=== PATIENT | female | born 1975 | race Caucasian/White ===

== ENCOUNTER 2017-04-28 12:37 | Emergency (ER) | payer OTHER, SELFPAY | END 2017-04-28 14:55 | disposition home or self-care (01) | PROVIDERS: Emergency Provider Nurse Practitioner; Family Provider Internal Medicine; Visit Provider Nurse Practitioner | DX: J06.9 Acute upper respiratory infection, unspecified (principal) | CPT/HCPCS: 99201 ==

== ENCOUNTER → 2017-04-30 | Outpatient (CLI) | payer OTHER, SELFPAY | PROVIDERS: Visit Provider Physician Assistant | DX: E55.9 Vitamin D deficiency, unspecified (principal); E66.9 Obesity, unspecified; Z68.43 Body mass index [BMI] 50.0-59.9, adult | CPT/HCPCS: 80053; 80061; 82306; 82607; 82746; 84439; 84443; 85025 ==

== ENCOUNTER → 2017-11-14 08:37 | Outpatient (CLI) | payer OTHER, SELFPAY ==
[2017-11-14 08:45] LABS: Microscopic, Urine URINE MICROSCOPIC (MICROSCOPIC)
[2017-11-14 09:05] LABS: Basophils % 0.4 % (0.1-2.0); Eosinophils # 0.4 K/mm3 (0.0-0.4); Eosinophils % 3.8 % (0.1-12.0); Hematocrit 42.4 % (37.0-47.0); Hemoglobin 13.9 g/dL (12.2-16.2); Lymphocytes # 2.5 K/mm3 (0.7-4.5); Lymphocytes % 27.1 K/mm3 (10-50); Mean Corpuscular HGB Conc 32.7 g/dL (31.8-35.4); Mean Corpuscular Hemoglobin 26.7 pg (27.0-31.2); Mean Corpuscular Volume 81.7 fl (81-99); Mean Platelet Volume 6.8 fl (7.4-10.4); Monocytes # 0.5 K/mm3 (0.1-1.0); Monocytes % 4.9 % (1.7-9.3); Neutrophils % 63.8 % (37.0-80.0); Platelet Count 357 K/mm3 (142-424); Red Blood Count 5.19 M/mm3 (4.20-5.40); Red Cell Distribution Width 13.6 % (11.5-17.5); White Blood Count 9.4 K/mm3 (4.8-10.8)
[2017-11-14 09:43] LABS: Appearance,Urine CLEAR (Clear); Bilirubin,Urine Negative (Negative); Blood, Urine TRACE-I (Negative); Color,Urine YELLOW (Yellow); Glucose,Urine (UA) Negative (Negative); Ketones,Urine Negative (Negative); Leukocyte Esterase,Urine Negative (Negative); Nitrate,Urine Negative (Negative); Protein,Urine Negative (Negative); Urobilinogen,Urine 0.2 EU/dl (0.2)
[2017-11-14 10:04] LABS: Bacteria,Urine Trace /lpf; Mucus,Urine 1+ /lpf; RBC,Urine Occasional #/hpf (0-3); WBC,Urine Occasional #/hpf (0-3)
[2017-11-14 10:21] LABS: Hemoglobin A1C 5.2 % (0.0-7.0)
[2017-11-14 10:28] LABS: Alanine Aminotransferase 37 U/L (12-78); Albumin Level 3.7 gm/dL (3.4-5.0); Alkaline Phosphatase 97 U/L (46-116); Aspartate Amino Transferase 17 U/L (15-37); Bilirubin,Total 0.5 mg/dL (0.2-1.0); Blood Urea Nitrogen 12 mg/dL (7-18); Calcium 8.7 mg/dL (8.5-10.1); Carbon Dioxide 27 mmol/L (21.0-32.0); Chloride 107 mmol/L (98-107); Chol/HDL Ratio 4.2 (1-3.5); Cholesterol 200 mg/dL (140-200); Creatinine,Serum 0.71 mg/dL (0.55-1.02); Estimated Glomerular Filt Rate 91 ml/min (>60); Free T4 (Free Thyroxine) 0.97 ng/dl (0.76-1.46); GFR (African American) 110 ML/MIN (>60); Globulin 3.7 gm/dl (1.3-3.2); Glucose 99 mg/dL (74-106); HDL Cholesterol 48 mg/dL (29-89); LDL Cholesterol 130 mg/dL (0-130); Sodium 142 mmol/L (136-145); Thyroid Stimulating Hormone 2.48 uIU/ml (0.358-3.740); Total Protein,Serum 7.4 gm/dL (6.4-8.2); Triglycerides 110 mg/dL (30-200); VLDL Cholesterol 22 mg/dL (0-40)
[2017-11-15 17:43] LABS: Microalbumin, Urine 18.6 ug/mL (Not Estab.)
[2017-11-17 19:21] LABS: Thyroglobulin Level 2.3 IU/mL (0.0-0.9)
[2017-11-19 09:10] LABS: Thyroid Peroxidase Antibodies >600 IU/mL (0-34)
[2017-11-25 06:15] LABS: Thyroglobulin by RIA 42 ng/mL (.)
== END ==
PROVIDERS: Visit Provider Internal Medicine
DX: R53.83 Other fatigue (principal); E66.9 Obesity, unspecified; Z13.220 Encounter for screening for lipoid disorders; Z13.1 Encounter for screening for diabetes mellitus
CPT/HCPCS: 36415; 80053; 80061; 81001; 82043; 83036; 84439; 84443; 85025; 86376; 86800

== ENCOUNTER → 2018-06-10 08:42 | Outpatient (CLI) | payer OTHER, SELFPAY ==
--- NOTE | 2018-06-10 08:46 | CI_ITS ---
Cerebrovascular Exam Indications: 780.4 Dizziness and giddiness. IMPRESSIONS 1. The bilateral vertebral arteries are patent with normal antegrade flow. 2. Study suggests less than 20% stenosis involving the left internal carotid artery. 3. Study suggests 20-49% stenosis involving the right internal carotid artery. History: Risk factors: Hypertension. Carotid duplex study. Complete study and Doppler flow study including spectral analysis, color and holland scale imaging. Height: Height: 1950.7cm. Height: 768in. Weight: Weight: 130.2kg. Weight: 286.4lb. Body mass index: BMI: 0.3kg/m^2. Body surface area: BSA: 6.71m^2. Location: Vascular laboratory. Patient status: Outpatient. Incidental findings: During the procedure, a goiter is observed. Tables: Arterial flow: + +--------+--------+ Location V sys V ed + +--------+--------+ Right CCA - proximal 142cm/s 25.9cm/s + +--------+--------+ Right CCA - distal 133cm/s 30.6cm/s + +--------+--------+ Right ECA 140cm/s 16.5cm/s + +--------+--------+ Right ICA - proximal 152cm/s 33cm/s + +--------+--------+ Right ICA - mid 84.9cm/s 25.1cm/s + +--------+--------+ Right ICA - distal 112cm/s 40.9cm/s + +--------+--------+ Right vertebral 69.9cm/s 21.2cm/s + +--------+--------+ Left CCA - proximal 150cm/s 36.1cm/s + +--------+--------+ Left CCA - distal 125cm/s 34.6cm/s + +--------+--------+ Left ECA 122cm/s 29.9cm/s + +--------+--------+ Left ICA - proximal 74.6cm/s 18.9cm/s + +--------+--------+ Left ICA - mid 112cm/s 43.2cm/s + +--------+--------+ Left ICA - distal 98.2cm/s 42.4cm/s + +--------+--------+ Left vertebral 69.9cm/s 21.2cm/s + +--------+--------+ Velocity ratios: + + + + + + Right, V sys Right, V ed Left, V sys Left, V ed + + + + + + Max ICA/dist CCA 1.14 1.34 0.9 1.25 + + + + + + (Report amended ) Electronically signed by: Dutch Ying [id number]
--- NOTE | 2018-06-10 08:46 | CA_ITS ---
PROCEDURE: 2-D M-mode and color Doppler study INDICATIONS FOR THE TEST: Chest pain COPD Heart Murmur Tobacco Smoking Palpitations Fatigue Syncope Edema Hypertension+Diabetes Mellitus Rheumatic Fever SOB PALACIOS Obesity + Hyperlipidemia Family History HD Additional History XIOMARA PATIENT INFORMATION HEIGHT: 64 WEIGHT:287 GENDER: Female B/P:152/100 2-D/M-MODE INTERPRETATION: 2-D MEASUREMENTS OBSERVED VALUES IN CMS Right Ventricular Dimension (RVDd) 2.3 Interventricular Septum (Thickness)(IVsd) 1.6 Left Ventricular Internal Dimensions(LVIDd) 5.1 Left Ventricular Posterior Wall (Thickness)(LVPWd) 0.9 Aortic Root 3.2 Aortic Cusp Separation 1.9 Left Atrial Dimensions (LAD) 4.0 2D 1. Left atrium is mildly enlarged, left ventricle is normal size, mild concentric left ventricular hypertrophy, visually estimated ejection fraction 55% with no regional wall motion abnormality. 2. The right atrium and right ventricle are mildly enlarged with normal contractility. 3. The aortic valve is minimally thickened and fibrosed. 4. The mitral and tricuspid valve leaflets are minimally thickened. 5. The pulmonic valve is poorly visualized. 6. No significant pericardial effusion noted. DOPPLER INTERROGATION: Doppler interrogation of the aortic, mitral and tricuspid valvular presence of mild mitral and tricuspid regurgitation, tricuspid regurgitation jet velocity is inadequate for calculation of the right ventricular systolic pressure, grade 1 diastolic dysfunction seen with tissue Doppler evidence of raised left atrial pressure. CONCLUSION: 1. Mildly enlarged left atrium, normal left ventricular size, mild concentric left ventricular hypertrophy, visually estimated ejection fraction 55% with no regional wall motion abnormality, grade 1 diastolic dysfunction seen with tissue Doppler evidence of raised left atrial pressure. 2. Mild mitral and tricuspid regurgitation 3. No significant pericardial effusion noted.
[2018-06-10 11:14] LABS: Anion Gap 11.1 mEq/L (5-15); Blood Urea Nitrogen 18 mg/dL (7-18); Calcium 9.5 mg/dL (8.5-10.1); Carbon Dioxide 32 mmol/L (21.0-32.0); Chloride 100 mmol/L (98-107); Creatinine,Serum 0.76 mg/dL (0.55-1.02); Estimated Glomerular Filt Rate 83 ml/min (>60); GFR (African American) 101 ML/MIN (>60); Glucose 101 mg/dL (74-106); Potassium 4.1 mmoL/L (3.5-5.1); Sodium 139 mmol/L (136-145)
== END ==
PROVIDERS: Internal Medicine Cardiovascular Disease; PCP Internal Medicine; Visit Provider Internal Medicine
DX: R42 Dizziness and giddiness (principal); H53.9 Unspecified visual disturbance; I10 Essential (primary) hypertension; E66.9 Obesity, unspecified; G47.33 Obstructive sleep apnea (adult) (pediatric); R11.0 Nausea
CPT/HCPCS: 36415; 80048; 83880; 93306; 93880

== ENCOUNTER 2018-06-24 13:00 | Outpatient (RCR) | payer OTHER, SELFPAY | END 2018-06-24 13:05 | disposition home or self-care (01) | LOC: PT 13:00 | PROVIDERS: Visit Provider Orthopaedic Surgery Adult Reconstructive Orthopaedic Surgery | DX: S83.242A Other tear of medial meniscus, current injury, left knee, initial encounter (principal) | CPT/HCPCS: 97010; 97014; 97110; 97163; G0283 ==

== ENCOUNTER → 2018-06-28 12:23 | Outpatient (CLI) | payer OTHER, SELFPAY ==
[2018-06-28 12:28] LABS: Adenovirus F 40/41, stool Not Detected (NotDetected); Astrovirus Not Detected (NotDetected); Campylobacter Not Detected (NotDetected); Clostridium Difficile A/B, PCR Not Detected (NotDetected); Cryptosporidium Not Detected (NotDetected); Cyclospora Cayetanesis Not Detected (NotDetected); Entamoeba histolytica Not Detected (NotDetected); Enteroaggregative E coli Not Detected (NotDetected); Enteropathogenic E coli Not Detected (NotDetected); Enterotoxigenic E coli Not Detected (NotDetected); Giardia lamblia Not Detected (NotDetected); Plesimonas Shigalloides, PCR Not Detected (NotDetected); Rotavirus A Not Detected (NotDetected); Salmonella, PCR Not Detected (NotDetected); Sapovirus Not Detected (NotDetected); Shiga-like toxin E coli Not Detected (NotDetected); Shigella Enterovasive E coli Not Detected (NotDetected); Vibrio Cholerae Not Detected (NotDetected); Vibrio, PCR Not Detected (NotDetected); Yersinia Entercolitica, PCR Not Detected (NotDetected)
[2018-06-28 15:28] LABS: Norovirus Detected (NotDetected)
== END ==
PROVIDERS: Visit Provider Emergency Medicine
DX: R19.7 Diarrhea, unspecified (principal)
CPT/HCPCS: 87507

== ENCOUNTER → 2018-06-30 12:40 | Outpatient (CLI) | payer OTHER, SELFPAY ==
--- NOTE | 2018-06-30 13:04 | US_ITS ---
FNA w guidance, US Biopsy Thyroid, US thyroid HISTORY: Left thyroid nodule ITS.REASON: LT THYROID NODULE ORDERING PHYSICIAN: Wesley Dick MD PATIENT AGE: 43 years COMPARISON: None Thyroid ultrasound: The right lobe of thyroid is enlarged at 5 x 2.8 x 3.6 cm. Multiple nodules are present on the right measuring up to 16 mm. Left lobe of the thyroid gland is enlarged at 5 x 2.5 x 4 cm. Multiple nodules are present on the left measuring up to 3 x 1.3 cm in the upper pole. This was the nodule that was targeted for biopsy. IMPRESSION: Multinodular goiter as described above ULTRASOUND-GUIDED FINE-NEEDLE ASPIRATION: TECHNIQUE: Following obtaining informed consent, using aseptic technique and local anesthesia with buffered lidocaine, fine-needle aspiration was performed of the dominant nodule in the left lobe representing nodule of interest using sonographic guidance. 3 passes were made into the nodule with a 25-gauge needle. Specimen was given to cytology. The patient tolerated the procedure well without evidence of immediate complications and left the ultrasound suite in stable condition. CYTOLOGY:Benign goitrous follicular nodule IMPRESSION: 1. Fine-needle aspiration of the dominant nodule on the left shows benign findings 2. Multinodular goiter
== END ==
PROVIDERS: PCP Nurse Practitioner Family; Visit Provider Otolaryngology
DX: D44.0 Neoplasm of uncertain behavior of thyroid gland (principal)
CPT/HCPCS: 10005; 76536

== ENCOUNTER → 2018-07-15 10:01 | Outpatient (CLI) | payer OTHER, SELFPAY ==
[2018-07-15 11:15] LABS: Basophils % 0.5 % (0.1-2.0); Eosinophils # 0.3 K/mm3 (0.0-0.4); Eosinophils % 3.9 % (0.1-12.0); Hematocrit 37.9 % (37.0-47.0); Hemoglobin 12.7 g/dL (12.2-16.2); Lymphocytes # 2.3 K/mm3 (0.7-4.5); Mean Corpuscular HGB Conc 33.5 g/dL (31.8-35.4); Mean Corpuscular Hemoglobin 27.6 pg (27.0-31.2); Mean Corpuscular Volume 82.5 fl (81-99); Mean Platelet Volume 7.1 fl (7.4-10.4); Monocytes # 0.4 K/mm3 (0.1-1.0); Monocytes % 4.9 % (1.7-9.3); Neutrophils # 4.1 K/mm3 (1.8-7.8); Neutrophils % 58.6 % (37.0-80.0); Platelet Count 326 K/mm3 (142-424); Red Cell Distribution Width 14.5 % (11.5-17.5)
[2018-07-15 11:30] LABS: Bilirubin,Direct 0.1 mg/dL (0.0-0.2); Chol/HDL Ratio 3.8 (1-3.5); Cholesterol 169 mg/dL (140-200); HDL Cholesterol 45 mg/dL (29-89); LDL Cholesterol 103 mg/dL (0-130); Triglycerides 104 mg/dL (30-200); VLDL Cholesterol 21 mg/dL (0-40)
[2018-07-15 11:48] LABS: Alanine Aminotransferase 40 U/L (12-78); Albumin Level 3.5 gm/dL (3.4-5.0); Albumin/Globulin Ratio 0.9 (1.1-1.8); Alkaline Phosphatase 96 U/L (46-116); Anion Gap 14.5 mEq/L (5-15); Aspartate Amino Transferase 19 U/L (15-37); Bilirubin,Total 0.6 mg/dL (0.2-1.0); Blood Urea Nitrogen 15 mg/dL (7-18); Calcium 8.9 mg/dL (8.5-10.1); Carbon Dioxide 27 mmol/L (21.0-32.0); Chloride 101 mmol/L (98-107); Creatinine,Serum 0.59 mg/dL (0.55-1.02); Estimated Glomerular Filt Rate 112 ml/min (>60); Free T4 (Free Thyroxine) 0.95 ng/dl (0.76-1.46); GFR (African American) 135 ML/MIN (>60); Globulin 3.7 gm/dl (1.3-3.2); Glucose 98 mg/dL (74-106); Potassium 3.5 mmoL/L (3.5-5.1); Sodium 139 mmol/L (136-145); Thyroid Stimulating Hormone 1.83 uIU/ml (0.358-3.740); Total Protein,Serum 7.2 gm/dL (6.4-8.2)
== END ==
PROVIDERS: Otolaryngology; Visit Provider Internal Medicine Cardiovascular Disease
DX: Z01.810 Encounter for preprocedural cardiovascular examination (principal); Z01.812 Encounter for preprocedural laboratory examination; I10 Essential (primary) hypertension; R00.0 Tachycardia, unspecified
CPT/HCPCS: 36415; 80053; 80061; 82248; 84439; 84443; 85025

== ENCOUNTER → 2018-09-17 13:53 | Outpatient (CLI) | payer OTHER, SELFPAY ==
[2018-09-17 16:43] LABS: Calcium 8.9 mg/dL (8.5-10.1); Free T4 (Free Thyroxine) 1.22 ng/dl (0.76-1.46); Thyroid Stimulating Hormone 1.22 uIU/ml (0.358-3.740)
== END ==
PROVIDERS: Visit Provider Otolaryngology
DX: E03.0 Congenital hypothyroidism with diffuse goiter (principal)
CPT/HCPCS: 36415; 82310; 84439; 84443

== ENCOUNTER → 2018-10-09 09:18 | Outpatient (CLI) | payer OTHER, SELFPAY ==
[2018-10-09 11:44] LABS: Alanine Aminotransferase 30 U/L (12-78); Albumin Level 3.4 gm/dL (3.4-5.0); Alkaline Phosphatase 97 U/L (46-116); Aspartate Amino Transferase 13 U/L (15-37); Bilirubin,Direct 0.1 mg/dL (0.0-0.2); Bilirubin,Indirect 0.4 mg/dL (0.0-0.9); Bilirubin,Total 0.5 mg/dL (0.2-1.0); Chol/HDL Ratio 3.2 (1-3.5); Cholesterol 150 mg/dL (140-200); HDL Cholesterol 47 mg/dL (29-89); LDL Cholesterol 86 mg/dL (0-130); Total Protein,Serum 6.8 gm/dL (6.4-8.2); Triglycerides 87 mg/dL (30-200); VLDL Cholesterol 17 mg/dL (0-40)
== END ==
PROVIDERS: Visit Provider Internal Medicine Cardiovascular Disease
DX: E78.2 Mixed hyperlipidemia (principal); Z01.818 Encounter for other preprocedural examination; E66.01 Morbid (severe) obesity due to excess calories; G47.33 Obstructive sleep apnea (adult) (pediatric); I10 Essential (primary) hypertension
CPT/HCPCS: 36415; 80061; 80076

== ENCOUNTER → 2019-03-10 13:33 | Outpatient (CLI) | payer OTHER, SELFPAY ==
[2019-03-10 14:00] LABS: Alanine Aminotransferase 36 U/L (12-78); Albumin Level 3.8 gm/dL (3.4-5.0); Albumin/Globulin Ratio 1.2 (1.1-1.8); Alkaline Phosphatase 81 U/L (46-116); Anion Gap 12.5 mEq/L (5-15); Aspartate Amino Transferase 18 U/L (15-37); Bilirubin,Total 0.5 mg/dL (0.2-1.0); Blood Urea Nitrogen 15 mg/dL (7-18); Calcium 8.8 mg/dL (8.5-10.1); Carbon Dioxide 27 mmol/L (21.0-32.0); Chloride 102 mmol/L (98-107); Chol/HDL Ratio 3.6 (1-3.5); Cholesterol 182 mg/dL (140-200); Creatinine,Serum 0.63 mg/dL (0.55-1.02); Estimated Glomerular Filt Rate 103 ml/min (>60); GFR (African American) 125 ML/MIN (>60); Globulin 3.3 gm/dl (1.3-3.2); Glucose 90 mg/dL (74-106); HDL Cholesterol 51 mg/dL (29-89); LDL Cholesterol 109 mg/dL (0-130); Potassium 3.5 mmoL/L (3.5-5.1); Sodium 138 mmol/L (136-145); T4 (Thyroxine) 10.6 ug/dl (4.7-13.3); Thyroid Stimulating Hormone 1.72 uIU/ml (0.358-3.740); Total Protein,Serum 7.1 gm/dL (6.4-8.2); Triglycerides 112 mg/dL (30-200); VLDL Cholesterol 22 mg/dL (0-40)
[2019-03-10 14:02] LABS: Basophils % 0.4 % (0.1-2.0); Eosinophils # 0.2 K/mm3 (0.0-0.4); Hematocrit 38.5 % (37.0-47.0); Hemoglobin 13.1 g/dL (12.2-16.2); Lymphocytes # 2.2 K/mm3 (0.7-4.5); Lymphocytes % 27.5 % (10-50); Mean Corpuscular HGB Conc 33.9 g/dL (31.8-35.4); Mean Corpuscular Hemoglobin 28.6 pg (27.0-31.2); Mean Corpuscular Volume 84.3 fl (81-99); Mean Platelet Volume 8.2 fl (7.4-10.4); Monocytes # 0.5 K/mm3 (0.1-1.0); Neutrophils % 63.1 % (37.0-80.0); Platelet Count 322 K/mm3 (142-424); Red Blood Count 4.57 M/mm3 (4.20-5.40); Red Cell Distribution Width 14.1 % (11.5-17.5)
== END ==
PROVIDERS: Visit Provider Physician Assistant
DX: E66.9 Obesity, unspecified (principal)
CPT/HCPCS: 80053; 80061; 84436; 84443; 85025

== ENCOUNTER → 2019-07-08 09:53 | Outpatient (CLI) | payer OTHER, SELFPAY ==
[2019-07-08 10:26] LABS: Basophils % 0.6 % (0.1-2.0); Eosinophils # 0.2 K/mm3 (0.0-0.4); Eosinophils % 3.5 % (0.1-12.0); Hematocrit 41.2 % (37.0-47.0); Lymphocytes # 2.2 K/mm3 (0.7-4.5); Lymphocytes % 38.5 % (10-50); Mean Corpuscular HGB Conc 33.8 g/dL (31.8-35.4); Mean Corpuscular Hemoglobin 28.1 pg (27.0-31.2); Mean Platelet Volume 7.8 fl (7.4-10.4); Monocytes # 0.3 K/mm3 (0.1-1.0); Neutrophils % 52.3 % (37.0-80.0); Platelet Count 294 K/mm3 (142-424); Red Blood Count 4.97 M/mm3 (4.20-5.40); Red Cell Distribution Width 13.7 % (11.5-17.5); White Blood Count 5.7 K/mm3 (4.8-10.8)
[2019-07-08 11:18] LABS: Chloride 102 mmol/L (98-107); Potassium 3.7 mmoL/L (3.5-5.1); Sodium 140 mmol/L (136-145)
[2019-07-08 11:20] LABS: Alanine Aminotransferase 66 U/L (12-78); Alkaline Phosphatase 92 U/L (38-126); Anion Gap 13.7 mEq/L (5-15); Aspartate Amino Transferase 39 U/L (14-36); Bilirubin,Total 0.7 mg/dl (0.2-1.3); Blood Urea Nitrogen 9 mg/dl (7-17); Carbon Dioxide 28 mmol/L (22.0-30.0); Estimated Glomerular Filt Rate 91 ml/min (>60); GFR (African American) 111 ML/MIN (>60)
[2019-07-08 11:21] LABS: Albumin Level 4.3 g/dl (3.5-5.0); Albumin/Globulin Ratio 1.7 (1.1-1.8); Calcium 9.4 mg/dl (8.4-10.2); Globulin 2.6 g/dL (1.3-3.2); Glucose 84 mg/dl (74-100); Iron 72 ug/dL (37-170); Total Protein,Serum 6.9 g/dl (6.3-8.2)
[2019-07-08 11:52] LABS: Thyroid Stimulating Hormone 0.22 uIU/mL (0.465-4.68)
[2019-07-08 11:56] LABS: Ferritin 101 ng/ml (6.24-137)
[2019-07-09 20:44] LABS: Folate 14.6 ng/mL (>3.0); Parathyroid Hormone Intact 23 pg/mL (15-65); Prealbumin 27 mg/dL (12-34); Vitamin D 25 Hydroxy 26.3 ng/mL (30.0-100.0)
[2019-07-11 16:33] LABS: Methylmalonic Acid 105 nmol/L (0-378)
[2019-07-13 16:09] LABS: Vitamin A 44.5 ug/dL (20.1-62.0)
== END ==
PROVIDERS: Visit Provider Surgery
DX: I10 Essential (primary) hypertension (principal); R63.4 Abnormal weight loss; E55.9 Vitamin D deficiency, unspecified; E66.01 Morbid (severe) obesity due to excess calories; Z13.21 Encounter for screening for nutritional disorder; Z98.84 Bariatric surgery status
CPT/HCPCS: 36415; 80053; 82131; 82652; 82728; 82746; 83540; 83735; 83970; 84100; 84134; 84425; 84443; 84446; 84590; 85025

== ENCOUNTER → 2020-01-19 08:32 | Outpatient (CLI) | payer OTHER, SELFPAY ==
[2020-01-19 09:42] LABS: Calcium 9.5 mg/dl (8.4-10.2)
[2020-01-19 09:59] LABS: T4 (Thyroxine) 9.6 ug/dl (5.53-11.0)
[2020-01-19 10:13] LABS: Thyroid Stimulating Hormone 4.21 uIU/mL (0.465-4.68)
[2020-01-21 18:17] LABS: Thyroglobulin Level 1.8 IU/mL (0.0-0.9); Thyroid Peroxidase Antibodies 594 IU/mL (0-34)
== END ==
PROVIDERS: Visit Provider Otolaryngology
DX: E03.0 Congenital hypothyroidism with diffuse goiter (principal)
CPT/HCPCS: 36415; 82310; 84436; 84443; 86376; 86800

== ENCOUNTER → 2020-02-23 09:37 | Outpatient (CLI) | payer OTHER, SELFPAY ==
[2020-02-23 10:17] LABS: Basophils % 0.5 % (0.1-2.0); Eosinophils # 0.3 K/mm3 (0.0-0.4); Eosinophils % 3.5 % (0.1-12.0); Hematocrit 43.7 % (37.0-47.0); Hemoglobin 14.2 g/dL (12.2-16.2); Lymphocytes # 2.5 K/mm3 (0.7-4.5); Lymphocytes % 33.9 % (10-50); Mean Corpuscular HGB Conc 32.5 g/dL (31.8-35.4); Mean Corpuscular Hemoglobin 28.4 pg (27.0-31.2); Mean Corpuscular Volume 87.4 fl (81-99); Mean Platelet Volume 7.6 fl (7.4-10.4); Monocytes # 0.4 K/mm3 (0.1-1.0); Monocytes % 5.2 % (1.7-9.3); Neutrophils # 4.1 K/mm3 (1.8-7.8); Neutrophils % 56.9 % (37.0-80.0); Platelet Count 294 K/mm3 (142-424); Red Cell Distribution Width 13.4 % (11.5-17.5); White Blood Count 7.3 K/mm3 (4.8-10.8)
== END ==
PROVIDERS: Visit Provider Otolaryngology
DX: E03.0 Congenital hypothyroidism with diffuse goiter (principal)
CPT/HCPCS: 36415; 84439; 84443; 85025

== ENCOUNTER → 2020-04-06 15:15 | Outpatient (CLI) | payer OTHER, SELFPAY ==
[2020-04-06 16:04] LABS: Basophils # 0.1 K/mm3 (0-0.2); Basophils % 0.6 % (0.1-2.0); Eosinophils # 0.2 K/mm3 (0.0-0.4); Eosinophils % 1.7 % (0.1-12.0); Hematocrit 44.8 % (37.0-47.0); Hemoglobin 14.9 g/dL (12.2-16.2); Lymphocytes # 2.6 K/mm3 (0.7-4.5); Lymphocytes % 29.9 % (10-50); Mean Corpuscular HGB Conc 33.3 g/dL (31.8-35.4); Mean Corpuscular Hemoglobin 28.7 pg (27.0-31.2); Mean Corpuscular Volume 86.3 fl (81-99); Mean Platelet Volume 8.1 fl (7.4-10.4); Monocytes # 0.3 K/mm3 (0.1-1.0); Monocytes % 3.6 % (1.7-9.3); Neutrophils # 5.6 K/mm3 (1.8-7.8); Neutrophils % 64.3 % (37.0-80.0); Platelet Count 351 K/mm3 (142-424); Red Blood Count 5.19 M/mm3 (4.20-5.40); Red Cell Distribution Width 13.2 % (11.5-17.5); White Blood Count 8.8 K/mm3 (4.8-10.8)
[2020-04-06 16:36] LABS: Anion Gap 11.6 mEq/L (5-15); Blood Urea Nitrogen 12 mg/dl (7-17); Calcium 9.5 mg/dl (8.4-10.2); Carbon Dioxide 29 mmol/L (22.0-30.0); Chloride 100 mmol/L (98-107); Estimated Glomerular Filt Rate 91 ml/min (>60); GFR (African American) 110 ML/MIN (>60); Glucose 108 mg/dl (74-100); Potassium 3.6 mmoL/L (3.5-5.1); Sodium 137 mmol/L (136-145)
[2020-04-06 16:49] LABS: Urine Pregnancy, HCG Qual. Negative (Negative)
[2020-04-06 17:54] LABS: Coronavirus 19 IgG Antibody Negative (Negative); Coronavirus 19 IgM Antibody Negative (Negative)
== END ==
PROVIDERS: Visit Provider Surgery
DX: Z01.818 Encounter for other preprocedural examination (principal); L72.9 Follicular cyst of the skin and subcutaneous tissue, unspecified
CPT/HCPCS: 36415; 80048; 81025; 85025; 86328

== ENCOUNTER 2020-04-09 11:34 | Day surgery (SDC) | payer OTHER, SELFPAY ==
[2020-04-06 14:31] VITALS: BMI 34.0
[2020-04-09] VITALS (12 sets, daily range): BP systolic 95–139; BP diastolic 49–99; PULSE 56–80; RESP 10–26; TEMP 36.2–36.7; O2SAT 91–99
--- NOTE | 2020-04-09 14:56 | HMH.OPNOTE ---
Date of procedure: 04/09/20 Pre-op Diagnosis:: Abscessed sebaceous cyst anterior chest Post-op Diagnosis:: Same Procedure performed:: Excision of abscessed inflamed sebaceous cyst from the chest with partial closure Surgeon:: Ramon Joe MD PUBLIC [employer] COMMISSIONER:: Tuan Lay Anesthesia: LMA Estimated blood loss (mL): 10 Clinical Note:: Patient is a 45-year-old female referred by Joi Pacheco for cyst on chest wall. She works as a nurse at [employer]. Patient states that she has had a small nodule of the skin between the breasts. Recently it had become very large and extremely tender. She had presented to her primary care provider's office requesting the area to be lanced . Limited attempted incision and drainage was performed with no evacuation of pus. She has been on antibiotics consisting of Bactrim. She has had persistent tenderness and swelling. Recently over the past several days she has had some slightly purulent minimal drainage from the limited incision and drainage site. She was seen in the office. She had what appeared to be abscessed inflamed sebaceous cyst in the mid chest slightly to the left breast lateral edge. Operative findings:: Consistent with abscess ruptured sebaceous cyst Operative note:: Patient was taken to the operating room. She was positioned in a supine position. General anesthesia was induced via LMA. The area was prepped and draped in the standard surgical fashion. Curvilinear crescent incision was made along normal skin lines incorporating in the skin ellipse what appeared to be likely the original skin punctum. Dissection was carried down through skin tissues. Tissues had acute on chronic inflammation and delineation of normal tissue planes was difficult. Infected appearing debris and caseous material was encountered consistent with ruptured inflamed possibly abscessed sebaceous cyst. Scissor dissection was performed circumferentially down to normal tissues excising the skin ellipse with the infected debris. This was sent off as a specimen. Wound was irrigated. Hemostasis was achieved with electrocautery. Local anesthetic was infiltrated. Skin was reapproximated with interrupted 4-0 nylon horizontal mattress sutures leaving the central portion of the incision open for drainage and packing. Quarter inch plain packing gauze was packed centrally and clean dry sterile dressing was applied. Condition: stable Disposition: PACU Complications:: None immediately apparent
--- NOTE | 2020-04-09 15:00 | HMH.ANESCL ---
[facility] Anesthesia Checklist - Structural Data Admitted From: Home Planned Operative Procedure/s: excision chest cyst Consent for Planned Operative Procedure(s) Verified: Yes - Additional verifications Anesthesia Reactions: No Hx Blood Transfusions: No Blood Transfusion Reaction: No - Airway Assessment C-Spine Mobility Assessed: Yes TMJ Mobility Assessed: Yes Dentition: Good Dentition - Neurological Assessment Level of Consciousness: Awake, Alert, Appropriate - Anesthesia Plan Anesthesia Risk discussed: Yes Anesthesia Plan: Verified ASA Class: II Anesthesia Type: General [facility] History I have reviewed the patient's past medical history: Yes Medical History: Reports:: Hyperlipidemia, Hypertension Denies:: Cancer, Chronic Obstructive Pulmonary Disease (COPD), Diabetes Mellitus Type 1, Diabetes Mellitus Type 2, Internal Pacemaker, MRSA, Pulmonary Embolism, Seizures *Have you ever received a pneumonia vaccine?: No *Have you received a flu vaccine this season?: No Other Medical History: Denies: Blood Transfusion Reaction Anesthesia experience/problems:: none Laterality Cases: Left: Arthroscopy Knee Other Surgeries: Yes: No Previous Surgery, Cholecystectomy, Hysterectomy-Total, Hysterectomy-Partial, Tubal Ligation. No: Pacemaker Amputation: No Fractures: No - *Social History Smoking Status: Never smoker Alcohol Intake: never Substance Use Type: denies use *Occupational Status:: employed Housing: house Household Members: spouse *Travel in the last 8 weeks: None Family Hx:: Hypertension, Cancer, Heart Attack
--- NOTE | 2020-04-09 15:01 | HMH.ANESI ---
[facility] Anesthesia Record Part I Intake, IV Amount: 1,000 Estimated blood loss (mL): 0 Urine output (mL): 0 Blood Pressure: 95/52 SaO2: 92 Pulse Rate: 74 Respiratory Rate: 10 Temperature: 97.4 F Patient is:: Drowsy, Stable Stable to PACU at:: 15:00
--- NOTE | 2020-04-10 09:43 | P.PN_ITS ---
[facility] Anesthesia Record Part II Discharge Time: 15:30 Destination: [facility] PACU nurse assessment reviewed?: Yes Patient Condition:: Good Anesthesia Complications:: None Swallowing reflex intact?: Yes Cyanosis?: No Blood Pressure: 115/78 Pulse Rate: 66 Temperature: 97.8 F Mental Status: Alert & Oriented Pain level:: 0 Nausea and/or vomitting:: None Intake, IV Amount: 1,000
[2020-04-10 09:44] VITALS: BP 115/78; PULSE 66; TEMP 36.6
== END 2020-04-09 16:11 | disposition home or self-care (01) ==
LOC: OR 11:35
PROVIDERS: PCP Physician Assistant; Visit Provider Surgery
PROC: (CPT 11403; principal; 2020-04-09 13:30)
DX: L72.3 Sebaceous cyst (principal); I10 Essential (primary) hypertension; E78.5 Hyperlipidemia, unspecified; Z90.49 Acquired absence of other specified parts of digestive tract; E07.9 Disorder of thyroid, unspecified; Z88.0 Allergy status to penicillin; Z88.8 Allergy status to other drugs, medicaments and biological substances; Z79.899 Other long term (current) drug therapy
CPT/HCPCS: 11403; 96374; J2405

== ENCOUNTER → 2020-05-21 10:31 | Outpatient (CLI) | payer OTHER, SELFPAY ==
[2020-05-22 09:01] LABS: Covid-19 Nasal PCR Sendout P&C POSITIVE
== END ==
PROVIDERS: Visit Provider Nurse Practitioner Family
DX: U07.1 COVID-19 (principal)
CPT/HCPCS: U0004

== ENCOUNTER → 2020-09-20 07:47 | Outpatient (CLI) | payer OTHER, SELFPAY ==
[2020-09-20 09:15] LABS: Free T4 (Free Thyroxine) 1.33 ng/dl (0.78-2.19)
[2020-09-20 09:29] LABS: Thyroid Stimulating Hormone 1.72 uIU/mL (0.465-4.68)
== END ==
PROVIDERS: Visit Provider Otolaryngology
DX: E03.9 Hypothyroidism, unspecified (principal)
CPT/HCPCS: 36415; 84439; 84443

== ENCOUNTER → 2021-01-17 13:52 | Outpatient (CLI) | payer OTHER, SELFPAY ==
--- NOTE | 2021-01-17 13:54 | CT_ITS ---
PROCEDURE: CT ANGIO CHEST PE PROTOCOL CLINCIAL INDICATION: PE protocol Covid19, chest pain COMPARISON: No exams were available for comparison TECHNIQUE: IV Contrast: 70ML Isovue 370 Axial images obtained with sagittal and coronal reformats. All CT scans at the facility use one or more dose reduction, viz: automated exposure control, ma/kV adjustment per patient size (including targeted exams where dose is matched to indication, i.e. head), or iterative reconstruction technique. FINDINGS: HEART AND MEDIASTINAL STRUCTURES: Right lobe of the thyroid gland is slightly enlarged incompletely image with possible nodule posteriorly and superiorly. Thyroid ultrasound may provide further evaluation.No evidence of pulmonary embolus, aortic aneurysm, or aortic dissection. LUNGS AND PLEURAL SPACES: The lungs are clear. No evidence of Covid19 pneumonia. Minimal nonspecific subpleural thickening in the left lower lobe posteriorly. No effusions BONY STRUCTURES: No acute bony abnormalities apparent. UPPER ABDOMEN: Prior cholecystectomy. Splenomegaly at 15 cm. Mildly prominent left adrenal gland nonspecific. ADDITIONAL FINDINGS: No other significant abnormalities. IMPRESSION: 1. No evidence of pulmonary embolus, aortic aneurysm, or aortic dissection. 2. Mild splenomegaly 3. Mild prominence of the right lobe of the thyroid gland with possible nodule superiorly Dictated by: Dutch Ying MD 01/17/2021 15:00 Dutch Ying MD in [place] 01/17/2021 15:01
== END ==
PROVIDERS: PCP Emergency Medicine; Visit Provider Nurse Practitioner Family
DX: R06.02 Shortness of breath (principal)
CPT/HCPCS: 71275; Q9967

== ENCOUNTER → 2021-01-23 12:20 | Outpatient (CLI) | payer OTHER, SELFPAY ==
--- NOTE | 2021-01-23 12:20 | US_ITS ---
PROCEDURE: US THYROID CLINICAL INDICATION: hypothyroidism COMPARISON: No exams were available for comparison FINDINGS: Right lobe: The right lobe measures 4 x 2.2 x 3.6 cm. There is diffuse heterogeneous echogenicity with a multinodular contour. A 7 mm slightly hyperechoic nodules present in the lower pole well-circumscribed wider than tall without calcifications. Other nodular areas are present better not well-defined in both the sagittal and transverse plane with questionable 1.9 cm slightly hyperechoic nodule in the upper pole and 1.3 cm slightly hyperechoic heterogeneous nodule in the lower pole. These are TR level 2 nodules less than 2.5 cm. Left lobe: Surgically absent Isthmus: Unremarkable Additional findings: IMPRESSION: Enlarged right lobe of the thyroid gland with a multinodular contour with TR level 2 nodules. Recommend annual follow-up to confirm stability. Dictated by: Dutch Ying MD 01/23/2021 18:30 Dutch Ying MD in [facility] 01/23/2021 18:30
[2021-01-23 12:53] LABS: Basophils # 0.1 K/mm3 (0-0.2); Basophils % 0.9 % (0.1-2.0); Eosinophils # 0.3 K/mm3 (0.0-0.4); Eosinophils % 3.3 % (0.1-12.0); Hematocrit 41.8 % (37.0-47.0); Lymphocytes # 2.7 K/mm3 (0.7-4.5); Lymphocytes % 35.7 % (10-50); Mean Corpuscular HGB Conc 33.5 g/dL (31.8-35.4); Mean Corpuscular Hemoglobin 29.6 pg (27.0-31.2); Mean Corpuscular Volume 88.5 fl (81-99); Mean Platelet Volume 8.7 fl (7.4-10.4); Monocytes # 0.4 K/mm3 (0.1-1.0); Monocytes % 4.8 % (1.7-9.3); Neutrophils # 4.2 K/mm3 (1.8-7.8); Neutrophils % 55.3 % (37.0-80.0); Platelet Count 324 K/mm3 (142-424); Red Blood Count 4.73 M/mm3 (4.20-5.40); Red Cell Distribution Width 12.7 % (11.5-17.5); White Blood Count 7.5 K/mm3 (4.8-10.8)
[2021-01-23 13:57] LABS: T4 (Thyroxine) 10.6 ug/dl (5.53-11.0)
[2021-01-23 14:11] LABS: Thyroid Stimulating Hormone 1.59 uIU/mL (0.465-4.68)
[2021-01-24 08:15] LABS: Thyroid Peroxidase Antibodies >600 IU/mL (0-34)
== END ==
PROVIDERS: PCP Emergency Medicine; Visit Provider Nurse Practitioner Family
DX: E03.9 Hypothyroidism, unspecified (principal)
CPT/HCPCS: 36415; 76536; 84436; 84443; 85025; 86376

== ENCOUNTER → 2021-02-25 08:49 | Outpatient (CLI) | payer OTHER, SELFPAY ==
--- NOTE | 2021-02-25 08:49 | FL_ITS ---
PROCEDURE: FL BARIUM SWALLOW CLINICAL INDICATION: dysphagia Difficulty swallowing pressure and lower ant anterior midline neck after recovering from COVID in the past few months. Prior history of partial thyroidectomy. COMPARISON: CT CT ANGIO CHEST PE PROTOCOL from 01/17/2021 FINDINGS: The patient was administered double contrast. The oropharyngeal phase of transfer was unremarkable. However, there is significant residual pooling of contrast on the epiglottis as well as in the Piriforms. No definite aspiration or penetration was noted. Peristalsis of the thoracic esophagus appeared unremarkable however, there was residual contrast remaining in the esophagus as well as can gastroesophageal reflux noted during this examination. The patient has prior gastric sleeve. IMPRESSION: Normal oropharyngeal phase however there is residual pooling of contrast in the hypopharynx at the epiglottis and Piriforms. In addition, there is significant gastroesophageal reflux observed. Consider functional testing with speech pathology and modified barium swallow. Dictated by: Katie Gary MD 02/25/2021 18:00 Katie Gary MD in [facility] 02/25/2021 18:00
== END ==
PROVIDERS: PCP Emergency Medicine; Visit Provider Otolaryngology
DX: R13.10 Dysphagia, unspecified (principal); E04.1 Nontoxic single thyroid nodule
CPT/HCPCS: 74220

== ENCOUNTER 2021-07-29 00:21 | Emergency (ER) | payer OTHER, SELFPAY ==
[2021-07-29 00:22] VITALS: BP 106/66; PULSE 97; RESP 16; TEMP 36.4; O2SAT 98; BMI 32.5
[2021-07-29 01:00] VITALS: BP 108/60; PULSE 84; O2SAT 96
[2021-07-29 01:01] LABS: Microscopic, Urine URINE MICROSCOPIC (MICROSCOPIC)
[2021-07-29 01:30] VITALS: BP 106/55; PULSE 95; O2SAT 99
[2021-07-29 01:32] LABS: Basophils % 0.5 % (0.1-2.0); Eosinophils # 0.2 K/mm3 (0.0-0.4); Eosinophils % 2.8 % (0.1-12.0); Hemoglobin 15.7 g/dL (12.2-16.2); Lymphocytes # 0.4 K/mm3 (0.7-4.5); Lymphocytes % 5.6 % (10-50); Mean Corpuscular HGB Conc 32.6 g/dL (31.8-35.4); Mean Corpuscular Hemoglobin 29.6 pg (27.0-31.2); Mean Platelet Volume 8.1 fl (7.4-10.4); Monocytes # 0.4 K/mm3 (0.1-1.0); Monocytes % 4.6 % (1.7-9.3); Neutrophils # 6.6 K/mm3 (1.8-7.8); Neutrophils % 86.4 % (37.0-80.0); Platelet Count 274 K/mm3 (142-424); Red Blood Count 5.28 M/mm3 (4.20-5.40); Red Cell Distribution Width 12.8 % (11.5-17.5); White Blood Count 7.6 K/mm3 (4.8-10.8)
[2021-07-29 01:36] LABS: MANUAL DIFFERENTIAL MANUAL DIFFERENTIAL (MANUAL DIFF)
[2021-07-29 01:37] LABS: Chloride 104 mmol/L (98-107); Potassium 4.1 mmoL/L (3.5-5.1); Sodium 137 mmol/L (136-145)
[2021-07-29 01:40] LABS: Alanine Aminotransferase 25 U/L (12-78); Albumin Level 4.3 g/dl (3.5-5.0); Albumin/Globulin Ratio 1.5 (1.1-1.8); Alkaline Phosphatase 66 U/L (38-126); Anion Gap 10.1 mEq/L (5-15); Aspartate Amino Transferase 24 U/L (14-36); Bilirubin,Total 0.9 mg/dl (0.2-1.3); Blood Urea Nitrogen 16 mg/dl (7-17); Calcium 8.3 mg/dl (8.4-10.2); Carbon Dioxide 27 mmol/L (22.0-30.0); Creatinine Clearance Estimated 107 mL/min (50-200); Estimated Glomerular Filt Rate 68 ml/min (>60); GFR (African American) 82 ML/MIN (>60); Globulin 2.9 g/dL (1.3-3.2); Glucose 139 mg/dl (74-100); Total Protein,Serum 7.2 g/dl (6.3-8.2)
[2021-07-29 01:45] LABS: C-Reactive Protein 4.8 mg/L (0-4)
--- NOTE | 2021-07-29 01:45 | CT_ITS ---
PROCEDURE INFORMATION: Exam: CT Abdomen And Pelvis With Contrast Exam date and time: 07/29/2021 2:07 AM Age: 46 years old Clinical indication: Abdominal tenderness and nausea and vomiting and other: Diarrhea; Prior surgery; Surgery date: 6+ months; Surgery type: Hysterectomy tubal ligation; Additional info: Diarrhea, abd cramping TECHNIQUE: Imaging protocol: Computed tomography of the abdomen and pelvis with contrast. Radiation optimization: All CT scans at this facility use at least one of these dose optimization techniques: automated exposure control; mA and/or kV adjustment per patient size (includes targeted exams where dose is matched to clinical indication); or iterative reconstruction. Contrast material: ISOVUE; Contrast volume: 75 ml; Contrast route: IV; COMPARISON: CT ANGIO CHEST PE PROTOCOL 01/17/2021 2:39 PM FINDINGS: Lungs: Several pulmonary granulomas. Liver: No suspicious mass. Gallbladder and bile ducts: cholecystectomy. Pancreas: No ductal dilation. No peripancreatic inflammatory changes. Spleen: Multiple granulomas in the spleen. Mild splenomegaly. Adrenal glands: No mass. Kidneys and ureters: No hydronephrosis. Small probable cyst in the right kidney. Stomach and bowel: Postsurgical changes in the stomach. Appendix: Unremarkable appendix. Intraperitoneal space: No free air. No ascites. Vasculature: Atherosclerotic calcifications. Lymph nodes: No enlarged lymph nodes. Urinary bladder: Unremarkable as visualized. Reproductive: Hysterectomy. Prominent probable follicle in the left ovary. Bones/joints: No suspicious osseous lesion. No acute fracture. Soft tissues: No suspicious mass. IMPRESSION: No acute findings. COMMENTS: Consistent with the [employer]'s Incidental Findings Committee white paper (J Am Karina Radiol 2018): Any incidental renal lesion less than 1 cm or classified as too small to characterize, or any incidental cystic renal lesion characterized as simple-appearing, is likely benign. No follow-up imaging is recommended for these lesions per consensus recommendations based on imaging criteria.
[2021-07-29 02:00] VITALS: BP 103/55; PULSE 95; O2SAT 98
[2021-07-29 02:00] LABS: Lymphocytes % 3 % (10-50); Monocytes % 2 % (2-9); Neutrophils % 92 % (42-76); Platelet Estimate Normal; RBC Morphology Normal; T4 (Thyroxine) 9.8 ug/dl (5.53-11.0); Total Cells Counted 100
[2021-07-29 02:07] LABS: Appearance,Urine CLOUDY (Clear); Blood, Urine Negative (Negative); Color,Urine YELLOW (Yellow); Glucose,Urine (UA) Negative (Negative); Ketones,Urine TRACE (Negative); Leukocyte Esterase,Urine Negative (Negative); Nitrate,Urine Negative (Negative); Protein,Urine 2+ (Negative); Specific Gravity, Urine >= 1.030 (1.005-1.030); Urobilinogen,Urine 0.2 EU/dl (0.2)
[2021-07-29 02:09] LABS: Bilirubin,Urine Negative (Negative)
[2021-07-29 02:10] LABS: Mucus,Urine 4+ /lpf
[2021-07-29 02:13] LABS: Thyroid Stimulating Hormone 1.29 uIU/mL (0.465-4.68)
[2021-07-29 02:14] LABS: Erythrocyte Sedimentation Rate 14 mm/hr (0-20)
--- NOTE | 2021-07-29 02:33 | HMH.EDNVD ---
ED Disposition Clinical Impression: Gastroenteritis, Vasovagal episode Disposition: Home, Self-Care Condition on Discharge: Good Instructions: DI for Diarrhea and Traveler's Diarrhea -- Adult Additional Instructions: fluids and see pcp for follow up Prescriptions: Ondansetron [Zofran 4mg ODT] 4 mg PO TIDP PRN #21 tab PRN Reason: Nausea And Vomiting Transmission Status: Pending to [facility] Referrals: Williams Rizo MD [Primary Care Provider] - - Critical Care Critical Care Time: No Attestation: On 07/29/21, the high probability of a clinically significant, sudden or life threatening deterioration of the following system(s) required my full and direct attention, intervention and personal management. The time I documented below is in addition to time spent performing reported procedures but includes the following listed in this critical care notation. Medical Decision Making - Medical Records Medical records reviewed: Yes: I reviewed the patient's medical records. - Anibal Inquiry Pt receiving controlled substance: No Vital Signs: 07/29/21 00:22 07/29/21 01:00 07/29/21 01:30 Temperature 97.6 F Temperature Source Oral Pulse Rate 84 95 H Pulse Rate [Right Radial] 97 H Respiratory Rate 16 Blood Pressure 108/60 L 106/55 L Blood Pressure [Right Arm] 106/66 L Blood Pressure Mean 72 Blood Pressure Mean [Right Arm] 79 Blood Pressure Source [Right Arm] Automatic Cuff Blood Pressure Position [Right Arm] Sitting 02 Sat by Pulse Oximetry 98 96 99 Oxygen Delivery Method Room Air Room Air 07/29/21 02:00 07/29/21 03:08 Temperature 98.9 F Temperature Source Oral Pulse Rate 95 H 88 Pulse Rate [Right Radial] Respiratory Rate 18 Blood Pressure 103/55 L 126/87 Blood Pressure [Right Arm] Blood Pressure Mean 70 Blood Pressure Mean [Right Arm] Blood Pressure Source [Right Arm] Blood Pressure Position [Right Arm] 02 Sat by Pulse Oximetry 98 Oxygen Delivery Method Room Air - Lab Data Lab results reviewed: Yes: I reviewed the patient's lab results. Lab Results 07/29/21 00:29: Urine Color Yellow, Urine Appearance Cloudy, Urine pH 5.0, Ur Specific Rayne >= 1.030, Urine Protein 2+, Urine Glucose (UA) Negative, Urine Ketones Trace, Urine Blood Negative, Urine Nitrate Negative, Urine Bilirubin Negative, Urine Urobilinogen 0.2, Ur Leukocyte Esterase Negative, Ur Squamous Epith Cells 10-20, Urine Mucus 4+ 07/29/21 01:25: WBC 7.6, RBC 5.28, Hgb 15.7, Hct 48.0 H, MCV 91.0, MCH 29.6, MCHC 32.6, RDW 12.8, Plt Count 274, MPV 8.1, Neut % (Auto) 86.4 H, Lymph % (Auto) 5.6 L, Hamilton % (Auto) 4.6, Eos % (Auto) 2.8, Baso % (Auto) 0.5, Neut # (Auto) 6.6, Lymph # (Auto) 0.4 L, Hamilton # (Auto) 0.4, Eos # (Auto) 0.2, Baso # (Auto) 0.0, Total Counted 100, Neutrophils % (Manual) 92 H, Band Neutrophils % 3.0, Lymphocytes % (Manual) 3 L, Monocytes % (Manual) 2, Platelet Estimate Normal, RBC Morphology Normal, ESR 14 07/29/21 01:25: Sodium 137, Potassium 4.1, Chloride 104, Carbon Dioxide 27, Anion Gap 10.1, BUN 16, Creatinine 0.90, Estimated Creat Clear 107, Estimated GFR 68, Est GFR ( Amer) 82, Glucose 139 H, Calcium 8.3 L, Total Bilirubin 0.9, AST 24, ALT 25, Alkaline Phosphatase 66, C-Reactive Protein 4.8 H, Total Protein 7.2, Albumin 4.3, Globulin 2.9, Albumin/Globulin Ratio 1.5, TSH 1.29, Thyroxine (T4) 9.8 Result diagrams: 07/29/21 01:25 07/29/21 01:25 Orders (Tests/Meds): ED MEDICATIONS Generic Name Dose Route Start Last Admin Trade Name Freq PRN Reason Stop Dose Admin Lactated Ringer's 1,000 mls @ 999 mls/hr 07/29/21 01:00 07/29/21 01:31 Lactated Ringer's 1000 Ml Bag IV 07/29/21 02:00 999 mls/hr .Q1H1M DIANE Administration Sodium Chloride 8 ml 07/29/21 00:53 Sodium Chloride 0.9% 10ml Vial IV 08/28/21 00:52 NEEDED PRN dilute pepcid Discontinued Medications Generic Name Dose Route Start Last Admin Trade Name Freq PRN Reason
[2021-07-29 03:08] VITALS: BP 126/87; PULSE 88; RESP 18; TEMP 37.2; O2SAT 99
== END 2021-07-29 03:04 | disposition home or self-care (01) ==
PROVIDERS: Emergency Provider Emergency Medicine; PCP Emergency Medicine
DX: R11.2 Nausea with vomiting, unspecified (principal); R19.7 Diarrhea, unspecified; I10 Essential (primary) hypertension; E78.5 Hyperlipidemia, unspecified; J44.9 Chronic obstructive pulmonary disease, unspecified; Z88.0 Allergy status to penicillin; Z88.8 Allergy status to other drugs, medicaments and biological substances; Z82.49 Family history of ischemic heart disease and other diseases of the circulatory system; Z80.9 Family history of malignant neoplasm, unspecified
CPT/HCPCS: 74177; 80053; 81001; 84436; 84443; 85007; 85025; 85651; 86140; 96361; 96365; 96374; 96375; 99284; Q9967

== ENCOUNTER 2021-12-01 10:41 | Emergency (ER) | payer OTHER, SELFPAY ==
[2021-12-01 10:57] VITALS: BP 114/81; PULSE 79; RESP 17; TEMP 36.9; O2SAT 100; BMI 34.7
[2021-12-01 11:01] LABS: UTC Strep Screen (Rapid) Negative (Negative)
--- NOTE | 2021-12-01 11:19 | HMH.EDUTC ---
[facility] – [place], [place] Disposition Clinical Impression: Pharyngitis Qualifiers: Pharyngitis/tonsillitis etiology: unspecified etiology Qualified Code(s): J02.9 - Acute pharyngitis, unspecified Disposition: Home, Self-Care Condition on Discharge: Good Instructions: DI for Strep Throat, Preventing the Spread of Coronavirus Discharge Instructions Additional Instructions: Drink plenty of fluids. Take tylenol or ibuprofen for pain or fever. Take the medications as directed. Follow up with your regular doctor. GO TO THE ER FOR ANY WORSENING SYMPTOMS Quarantine until you know the results of your covid-19 test. Notify your school or workplace of your results and follow their instructions regarding return to work/school. Prescriptions: predniSONE [Deltasone 10mg tablet] 10 mg PO BID 3 Days #6 tab [facility] Fluconazole [Diflucan 150mg tab] 150 mg PO ONCE #1 tab Transmission Status: [facility] Cefdinir [Omnicef 300mg Capsule] 300 mg PO BID #20 cap Transmission Status: [facility] Triamcinolone Acetonide 1 applicatio TP TIDP PRN 7 Days #1 gm PRN Reason: Itching Transmission Status: Received by [facility] Referrals: Williams Rizo MD [Primary Care Provider] - Time of Disposition: 11:23 Medical Decision Making - Medical Records Medical records reviewed: No: I reviewed the patient's medical records. - Anibal Inquiry Pt receiving controlled substance: No Vital Signs: 12/01/21 10:57 Temperature 98.4 F Temperature Source Oral Pulse Rate [Left] 79 Respiratory Rate 17 Blood Pressure [Right Arm] 114/81 Blood Pressure Mean [Right Arm] 92 02 Sat by Pulse Oximetry 100 - Lab Data Lab Results 12/01/21 10:50: Strep Scn Rapid Clinic Negative Orders (Tests/Meds): ORDERS Category Date Time Status Covid-19 Nasal PCR ([facility]) Routine Lab 12/01/21 10:50 Received Strep Screen Confirmation Stat Micro 12/01/21 10:50 Received [facility] [place], [place] HPI - General Stated complaint: sore throat Time Seen by Provider: 12/01/21 11:19 Mode of Arrival: Ambulatory Source of Information: Patient Limitations: No Limitations Description of Symptoms (Recalled from Triage Doc. by RN): patient comes in with complaints of sore throat that began last night. HEENT Symptoms (Recalled from RN notes): Yes Resp Symptoms (Recalled from RN notes): No Skin Symptoms (Recalled from RN notes): No MS Symptoms (Recalled from RN notes): No Functional Status (Recalled from RN notes): n/a - History of Present Illness Provider Complaint: She c/o sore throat for the past 1 day. She gets strep throat kind of frequently and that is what she feels like is going on right now. She has had chills and body aches, but no cough or congestion. - Related Data Previous Rx's Medication Instructions Recorded prednisone 20 mg tablet 20 mg PO BID 5 Days #10 tab 05/22/20 promethazine 25 mg tablet 25 mg PO TID PRN 5 Days #15 tab 05/22/20 levothyroxine 100 mcg tablet 100 mcg PO DAILY 90 Days #90 tab 02/11/21 omeprazole 40 mg capsule,delayed 40 mg PO DAILY #30 cap 03/21/21 release Ondansetron [Zofran 4mg ODT] 4 mg PO TIDP PRN #21 tab 07/29/21 Cefdinir [Omnicef 300mg Capsule] 300 mg PO BID #20 cap 12/01/21 Fluconazole [Diflucan 150mg tab] 150 mg PO ONCE #1 tab 12/01/21 Triamcinolone Acetonide 1 applicatio TP TIDP PRN 7 Days #1 12/01/21 gm predniSONE [Deltasone 10mg tablet] 10 mg PO BID 3 Days #6 tab 12/01/21 Allergies Allergy/AdvReac Type Severity Reaction Status Date / Time Penicillins [PENICILLINS] Allergy Intermediate Rash Verified 12/01/21 10:59 Xigaxhl-DSG-DlL Reductase AdvReac Intermediate myalgias Verified 12/01/21 10:59 Inhibitor [Cvtyxqe-Zlx-Gcp Reductase Inhibitor] - Worker's Comp Is this a Worker's Comp case?: No [facility] History - Hepatitis A Screen Attestation statement:: This patient has been screened for Hepatit
[2021-12-01 11:26] VITALS: BP 114/81; PULSE 79; RESP 17; TEMP 36.9
== END 2021-12-01 11:28 | disposition home or self-care (01) ==
PROVIDERS: Emergency Provider Nurse Practitioner Family; PCP Emergency Medicine
DX: J02.9 Acute pharyngitis, unspecified (principal)
CPT/HCPCS: 87880; 99212; C9803; G0463; U0003; U0005

== ENCOUNTER 2022-07-14 08:18 | Emergency (ER) | payer BC, SELFPAY ==
[2022-07-14 08:30] VITALS: BP 152/86; PULSE 65; RESP 17; TEMP 36.8; O2SAT 97; BMI 38.7
[2022-07-14 08:50] LABS: UTC Strep Screen (Rapid) Negative (Negative)
--- NOTE | 2022-07-14 09:27 | EXP.UTC ---
Discharge Plan Disposition Patient Disposition: Home, Self-Care Condition: Good Prescriptions Prescriptions: New cefdinir 300 mg capsule 300 mg PO BID Qty: 20 0RF methylprednisolone [Medrol (Petar)] 4 mg tablets,dose pack See Rx Instructions .Route .COMPLEX 6 Days Qty: 21 0RF Rx Instructions: taper pack; ondansetron 4 mg tablet,disintegrating 4 mg PO Q8H PRN (Reason: nausea and vomiting) Qty: 10 0RF fluconazole [Diflucan] 150 mg tablet 150 mg PO Q3D Qty: 2 0RF Rx Instructions: Take one tab and may repeat in 72 hrs if still having symptoms No Action omeprazole 40 mg capsule,delayed release(DR/EC) 40 mg PO DAILY Qty: 30 3RF levothyroxine 100 mcg tablet 100 mcg PO DAILY 90 Days Qty: 90 4RF prednisone 20 mg tablet 20 mg PO BID 5 Days Qty: 10 0RF promethazine 25 mg tablet 25 mg PO TID PRN (Reason: nausea and vomiting) 5 Days Qty: 15 0RF ondansetron 4 MG tablet,disintegrating 4 mg PO TIDP PRN (Reason: Nausea And Vomiting) Qty: 21 0RF prednisone 10 MG tablet 10 mg PO BID 3 Days Qty: 6 0RF fluconazole 150 MG tablet 150 mg PO ONCE Qty: 1 2RF triamcinolone acetonide 15 GM cream 1 applicatio TP TIDP PRN (Reason: Itching) 7 Days Qty: 1 0RF Rx Instructions: 0.1% cefdinir 300 MG capsule 300 mg PO BID Qty: 20 0RF Referrals Follow up/Referrals: Tim Amos [Primary Care Provider] - See instructions Activity Restrictions/Add. Instructions Additional Instructions/Restrictions: *Monitor Temp, Over the counter Motrin or Tylenol as directed/as needed Tylenol every 4 hours and Motrin every 6 hours (as long as your family doctor has told you that you can take it) for fever or pain. and straight to ER if unable to lower temp less than 101.0 after medication given *Warm salt water gargles may help to soothe the throat *Throat Lozenges? *Warm fluids like tea with honey may help to soothe the throat? *Sleep elevated *Humidifier/Vaporizer Your throat swab was sent for culture. Those results are typically sent to your primary care. Be sure to follow up in 2-3 days with your family doctor/primary care physician if no improvement so they can review those result and treat if necessary. If you don?t have a primary care doctor, I recommend you get one but in the mean time, you will have to return to a walk in clinic Follow up IMMEDIATELY for new or worsening symptoms or no Noticeable improvement over the next 48-72 hours. 911 for difficulty breathing or swallowing Clinical Impressions Clinical Impression: Otitis media Stand Alone Forms Stand Alone Forms: Work/School Release Instructions Patient Instructions: Middle Ear Infection, DI for Nausea -- Adult, Cefdinir Discharge ED Provider: Rehana Kinney [facility] General Stated complaint: sore throat, cough, runny nose Mode of Arrival: Ambulatory Source of Information: Patient Limitations: No Limitations Time Seen by Provider: 07/14/22 09:27 Description of Symptoms (Recalled from Triage Doc. by RN): PATIENT C/O SORE THROAT, EAR PAIN, HEAD CONGESTION AND RUNNY NOSE SINCE YESTERDAY HEENT Symptoms (Recalled from RN notes): Yes Resp Symptoms (Recalled from RN notes): No Skin Symptoms (Recalled from RN notes): No MS Symptoms (Recalled from RN notes): No Functional Status (Recalled from RN notes): WNL History of Present Illness Provider Complaint: Patient state that she hasnt felt well for several days States that she has been having sore throat, nasal congestion, bilateral ear pain and pressure and nausea States that today she was feeling worse so she came in to get checked Related Data Previous Rx's Medication Instructions Recorded prednisone 20 mg tablet 20 mg PO BID 5 days #10 tabs 05/22/20 promethazine 25 mg tablet 25 mg PO TID PRN nausea and 05/22/20 vomiting 5 days #15 tabs levothyroxine 100 mcg tablet 100 mcg PO DAILY thyroid 90 days 02/11/21 #90 tabs omepraz
[2022-07-14 09:40] VITALS: BP 152/86; PULSE 65; RESP 17; TEMP 36.8; O2SAT 97
== END 2022-07-14 09:49 | disposition home or self-care (01) ==
PROVIDERS: Emergency Provider Nurse Practitioner; PCP Internal Medicine
DX: H66.93 Otitis media, unspecified, bilateral (principal); R11.0 Nausea; R07.0 Pain in throat
CPT/HCPCS: 87880; 99212; 99214; G0463

== ENCOUNTER 2023-06-16 09:05 | Emergency (ER) | payer BC, SELFPAY ==
[2023-06-16 09:42] VITALS: BP 136/86; PULSE 86; RESP 19; TEMP 37; O2SAT 98; BMI 36.0
--- NOTE | 2023-06-16 09:54 | ED_ITS ---
Discharge Plan Disposition Patient Disposition: Home, Self-Care Condition: Good Prescriptions Prescriptions: New azithromycin [Zithromax Z-Petar] 250 mg tablet See Rx Instructions .ROUTE .COMPLEX 5 Days Qty: 6 0RF Rx Instructions: For 250 mg dose pack: take 500 mg today (day 1), then 250 mg for 4 days (days 2-5) No Action levothyroxine 137 mcg tablet 137 mcg PO DAILY Referrals Follow up/Referrals: Tim Amos [Primary Care Provider] - See instructions Activity Restrictions/Add. Instructions Additional Instructions/Restrictions: *Monitor Temp, Over the counter Motrin or Tylenol as directed/as needed Tylenol every 4 hours and Motrin every 6 hours (as long as your family doctor has told you that you can take it) for fever or pain. and straight to ER if unable to lower temp less than 101.0 after medication given *Warm salt water gargles may help to soothe the throat *Throat Lozenges? *Warm fluids like tea with honey may help to soothe the throat? *Sleep elevated *Humidifier/Vaporizer Make appointment with your Family Doctor for further evaluation and lab work Your throat swab was sent for culture. Those results are typically sent to your primary care. Be sure to follow up in 2-3 days with your family doctor/primary care physician if no improvement so they can review those result and treat if necessary. If you don?t have a primary care doctor, I recommend you get one but in the mean time, you will have to return to a walk in clinic Follow up IMMEDIATELY for new or worsening symptoms or no Noticeable improvement over the next 48-72 hours. 911 for difficulty breathing or swallowing You were tested for today for Upper Respiratory Panel with COVID19 your test result should be back in the next 24 hours, you may check your results on the [facility] [employer] [facility] Portal if your COVID test is positive you must Quarantine for 5 days Clinical Impressions Clinical Impression: Viral syndrome Stand Alone Forms Stand Alone Forms: Work/School Release Instructions Patient Instructions: DI for Viral Syndrome Discharge ED Provider: Rehana Kinney [facility] [place] HPI General Stated complaint: congestion, body aches, ear pain Mode of Arrival: Ambulatory Source of Information: Patient Limitations: No Limitations Time Seen by Provider: 06/16/23 09:55 Description of Symptoms (Recalled from Triage Doc. by RN): PATIENT C/O HEADACHE, BODY ACHES, CONGESTION, SINUS PRESSURE, COUGH, SORE THROAT AND FEVER HEENT Symptoms (Recalled from RN notes): Yes Resp Symptoms (Recalled from RN notes): Yes Skin Symptoms (Recalled from RN notes): No MS Symptoms (Recalled from RN notes): No Functional Status (Recalled from RN notes): WNL History of Present Illness Provider Complaint: Patient states that she started last night with sore throat, headache, body aches, chills, nasal congestion/pressure fever and over all not feeling well States today she was feeling hot one minute and then cold the next and was still feeling flu like so she came in to get checked Related Data Home Medications Medication Instructions Recorded Confirmed levothyroxine 137 mcg tablet 137 mcg PO DAILY 06/16/23 06/16/23 Previous Rx's Medication Instructions Recorded azithromycin 250 mg tablet See Rx Instructions PO .COMPLEX 5 06/16/23 (Zithromax Z-Petar) days #6 tabs Allergies Allergy/AdvReac Type Severity Reaction Status Date / Time Penicillins [PENICILLINS] Allergy Intermediate Rash Verified 12/01/21 10:59 [id number] Reductase AdvReac Intermediate myalgias Verified 12/01/21 10:59 Inhibitor [Uagzqlg-Bhq-Gqn Reductase Inhibitor] Worker's Comp Is this a Worker's Comp case?: No [facility] Disclaimer: The information contained in this section may have been updated after the patient was seen, as this information can be updated by other users. Medical History (Updated 06/16/23 @ 10:07 by Rehana Kinney APRN) HLD (hyperlipidemia) Hypothyroidism Osteoarthritis Tachycardia Social History Smoking Status: Never smoker alcohol intake: never substance use type: denies use current occupational status: employed Travel in the last 8 weeks: None household members: spouse housing: house current occupational exposures/hazards: No caffeine: No ROS Obtained: Yes All systems reviewed & no additional complaints except as documented and Yes Systems reviewed as appropriate & no additional complaints except as documented Constitutional Constitutional: Reports system reviewed and no additional complaints, except as documented, Reports as per HPI, Reports body ache, Reports chills, Reports fever(s) and Reports headache(s) ENT Ears, Nose, Mouth, and Throat: Reports system reviewed and no additional complaints, except as documented, Reports as per HPI, Reports headache(s), Reports nasal congestion, Reports sinus pressure and Reports sore throat Cardiovascular Cardiovascular: Reports system reviewed and no additional complaints, except as documented and Reports as per HPI Respiratory Respiratory: Reports system reviewed and no additional complaints, except as documented and Reports as per HPI Gastrointestinal Gastrointestingal: Reports system reviewed and no additional complaints, except as documented and as per HPI Musculoskeletal Musculoskeletal: Reports system reviewed and no additional complaints, except as documented and Reports as per HPI Neurologic Neurologic: Reports headache(s) Physical Exam General General appearance: alert and in no apparent distress ENT ENT exam: Present mucous membranes moist Expanded ENT Exam Nose exam: Present sinus tenderness (started yesterday) Throat exam: Present normal inspection Respiratory Respiratory exam: Present normal lung sounds bilaterally; Absent respiratory distress or wheezes Cardiovascular Cardiovascular exam: Present regular rate, normal rhythm and normal heart sounds Abdominal Exam Abdominal exam: Present soft and normal bowel sounds; Absent distention or t enderness Neurological Exam Neurological exam: Present alert, oriented X3 and normal gait Medical Decision Making Anibal Inquiry Pt receiving controlled substance: No Anibal was queried for this patient: No Vital Signs: 06/16/23 09:42 Temperature 98.6 F Temperature Source Oral Pulse Rate [Left Brachial] 86 Respiratory Rate 19 Blood Pressure [Left Arm] 136/86 Blood Pressure Mean [Left Arm] 102 Blood Pressure Source [Left Arm] Automatic Cuff Blood Pressure Position [Left Arm] Sitting 02 Sat by Pulse Oximetry 98 Oxygen Delivery Method Room Air Lab Data Lab results reviewed: Yes I reviewed the patient's lab results.
[2023-06-16 10:06] LABS: UTC Influenza A Antigen Negative (Negative); UTC Strep Screen (Rapid) Negative (Negative)
[2023-06-16 10:07] LABS: UTC Influenza B Antigen Negative (Negative)
[2023-06-16 10:08] VITALS: BP 136/86; PULSE 86; RESP 19; TEMP 37; O2SAT 98
[2023-06-16 10:26] LABS: Adenovirus,PCR Not Detected (NotDetected); Coronavirus 19, PCR Not Detected (NotDetected); Coronavirus 229E Not Detected (NotDetected); Coronavirus NL63 Not Detected (NotDetected); Coronavirus OC43 Not Detected (NotDetected); Coronovirus HKU1,PCR Not Detected (NotDetected); Human Metapneumovirus Not Detected (NotDetected); Influenza A, PCR Not Detected (NotDetected); Influenza AH1, 2009 Not Detected (NotDetected); Influenza AH1, PCR Not Detected (NotDetected); Influenza AH3,PCR Not Detected (NotDetected); Influenza B, PCR Not Detected (NotDetected); Parainfluenza 1, PCR Not Detected (NotDetected); Parainfluenza 2, PCR Not Detected (NotDetected); Parainfluenza 3, PCR Not Detected (NotDetected); Parainfluenza 4, PCR Not Detected (NotDetected); Respiratory Syncytial Virus Not Detected (NotDetected); Rhinovirus/Enterovirus Not Detected (NotDetected)
== END 2023-06-16 10:19 | disposition home or self-care (01) ==
PROVIDERS: Emergency Provider Nurse Practitioner; PCP Internal Medicine
DX: R51.9 Headache, unspecified (principal); R50.9 Fever, unspecified; R09.81 Nasal congestion; R07.0 Pain in throat; M79.18 Myalgia, other site; B34.9 Viral infection, unspecified; E78.5 Hyperlipidemia, unspecified; E03.9 Hypothyroidism, unspecified
CPT/HCPCS: 87632; 87635; 87804; 87880; 99212; 99214; G0463

== ENCOUNTER 2023-12-29 08:26 | Emergency (ER) | payer BC, SELFPAY ==
[2023-12-29 08:30] VITALS: BP 145/69; PULSE 101; RESP 18; TEMP 36.9; O2SAT 97; BMI 41.6
--- NOTE | 2023-12-29 08:55 | EXP.UTC ---
Discharge Plan Disposition Patient Disposition: Home, Self-Care Condition: Good Prescriptions Prescriptions: New azithromycin [Zithromax Z-Petar] 250 mg tablet See Rx Instructions .ROUTE .COMPLEX 5 Days Qty: 6 0RF Rx Instructions: For 250 mg dose pack: take 500 mg today (day 1), then 250 mg for 4 days (days 2-5) methylprednisolone [Medrol (Petar)] 4 mg tablets,dose pack See Rx Instructions .Route .COMPLEX 6 Days Qty: 21 0RF Rx Instructions: taper pack; fluconazole 150 mg tablet 150 mg PO Q3D Qty: 2 0RF Rx Instructions: take one dose now and may repeat in 72hrs if still having symptoms No Action levothyroxine 137 mcg tablet 137 mcg PO DAILY Referrals Follow up/Referrals: Tim Amos [Primary Care Provider] - See instructions Activity Restrictions/Add. Instructions Additional Instructions/Restrictions: *Monitor Temp, Over the counter Motrin or Tylenol as directed/as needed Tylenol every 4 hours and Motrin every 6 hours (as long as your family doctor has told you that you can take it) for fever or pain. and straight to ER if unable to lower temp less than 101.0 after medication given *Warm salt water gargles may help to soothe the throat *Throat Lozenges? *Warm fluids like tea with honey may help to soothe the throat? *Sleep elevated *Humidifier/Vaporizer Start oral steriods tomorrow Your throat swab was sent for culture. Those results are typically sent to your primary care. Be sure to follow up in 2-3 days with your family doctor/primary care physician if no improvement so they can review those result and treat if necessary. If you don?t have a primary care doctor, I recommend you get one but in the mean time, you will have to return to a walk in clinic Follow up IMMEDIATELY for new or worsening symptoms or no Noticeable improvement over the next 48-72 hours. 911 for difficulty breathing or swallowing Clinical Impressions Clinical Impression: Pharyngitis Instructions Patient Instructions: Sore Throat Print Language Print Language: Vietnamese Discharge ED Provider: Rehana Kinney [facility] General Stated complaint: sore throat eye drainage Mode of Arrival: Ambulatory Source of Information: Patient Limitations: No Limitations Time Seen by Provider: 12/29/23 08:55 Description of Symptoms (Recalled from Triage Doc. by RN): PATIENT C/O SORE THROAT, DRAINAGE FROM BILATERAL EYES, LEFT EAR PAIN AND CONGESTION X 2 DAYS HEENT Symptoms (Recalled from RN notes): Yes Resp Symptoms (Recalled from RN notes): No Skin Symptoms (Recalled from RN notes): No MS Symptoms (Recalled from RN notes): No Functional Status (Recalled from RN notes): WNL History of Present Illness Provider Complaint: Patient states that she hasnt felt well for several days States that she has been having sore throat, pain and pressure in her left ear and feeling like she is swallowing razorblades and not got any better Related Data Home Medications ?Medication ?Instructions ?Recorded ?Confirmed levothyroxine 137 mcg tablet 137 mcg PO DAILY 06/16/23 12/29/23 Previous Rx's ?Medication ?Instructions ?Recorded azithromycin 250 mg tablet See Rx Instructions PO .COMPLEX 5 12/29/23 (Zithromax Z-Petar) days #6 tabs fluconazole 150 mg tablet 150 mg PO Q3D 2 doses #2 tabs 12/29/23 methylprednisolone 4 mg tablets in See Rx Instructions .Route 12/29/23 a dose pack (Medrol (Petar)) .COMPLEX 6 days #21 tabs Allergies Allergy/AdvReac Type Severity Reaction Status Date / Time Penicillins [PENICILLINS] Allergy Intermediate Rash Verified 12/01/21 10:59 [id number] Reductase AdvReac Intermediate myalgias Verified 12/01/21 10:59 Inhibitor [Agfnvoz-Hwo-Lji Reductase Inhibitor] Worker's Comp Is this a Worker's Comp case?: No [facility] Disclaimer: The information contained in this section may have been updated after the patient was seen, as this information c
[2023-12-29 09:15] VITALS: BP 145/69; PULSE 101; RESP 18; TEMP 36.9; O2SAT 97
[2023-12-29 09:15] LABS: UTC Strep Screen (Rapid) Negative (Negative)
== END 2023-12-29 09:16 | disposition home or self-care (01) ==
PROVIDERS: Emergency Provider Nurse Practitioner; PCP Internal Medicine
DX: J02.9 Acute pharyngitis, unspecified (principal); H92.02 Otalgia, left ear
CPT/HCPCS: 87880; 96372; 99212; 99214; G0463; J2919